=== PATIENT | male | born 1985 | race Caucasian/White ===

== ENCOUNTER → 2018-02-28 14:00 | Outpatient (CLI) | payer OTHER, MEDICARE, MEDICAID, SELFPAY | DX: Z23 Encounter for immunization (principal) | CPT/HCPCS: 90471; 90686 ==

== ENCOUNTER → 2019-02-15 07:08 | Outpatient (CLI) | payer OTHER, MEDICARE, MEDICAID, SELFPAY ==
[2019-02-15 08:55] LABS: Alanine Aminotransferase 31 IU/L (21-72); Albumin 4.4 g/dL (3.5-5.0); Albumin Globulin Ratio 1.5 (1.0-2.8); Alkaline Phosphatase 62 U/L (38-126); Aspartate Aminotransferase 27 IU/L (17-59); BUN Creatinine Ratio 21.4 (6-22); Bilirubin Total 0.8 mg/dL (0.2-1.3); Blood Urea Nitrogen 15 mg/dL (9-20); Calcium 9.3 mg/dL (8.4-10.2); Carbon Dioxide 29 mmol/L (22-32); Chloride 99 mmol/L (98-107); Cholesterol 260 mg/dL (140-199); Estimated Glomerular Filt Rate > 60.0 mL/min (>60); Glucose 93 mg/dL (70-100); HDL Cholesterol 46 mg/dL (40-60); HEMOLYSIS < 15 (0-50); Hemoglobin A1C% w Est Avg Glu 4.6 % (4.0-6.0); LDL Cholesterol Calculated 184 mg/dL (<100); Potassium 3.5 mmol/L (3.4-5.1); Sodium 140 mmol/L (137-145); Total Protein 7.4 g/dL (6.3-8.2); Triglycerides 151 mg/dL (35-150)
[2019-02-15 08:59] LABS: Add Manual Diff / Slide Review NO; Basophils Absolute Auto 100 /uL (0-100); Basophils Percent Auto 1.2 % (0-2); Eosinophils Absolute Auto 0 /uL (0-450); Eosinophils Percent Auto 0.8 % (2-4); Hematocrit 47.8 % (41-53); Hemoglobin 16.6 g/dL (13.5-17.5); Lymphocytes Absolute Auto 1700 /uL (1100-4500); Lymphocytes Percent Auto 34.9 % (25-40); Mean Corpuscular HGB Conc 34.6 % (30-36); Mean Corpuscular Hemoglobin 32.7 PG (26-34); Mean Corpuscular Volume 94.5 fL (80-100); Monocytes Absolute Auto 400 /uL (0-900); Monocytes Percent Auto 7.7 % (3-14); Neutrophils Absolute Auto 2700 /uL (1500-7000); Neutrophils Percent Auto 55.4 % (50-75); Platelet Count 252 X10^3/uL (150-400); Red Blood Cell Count 5.06 X10^6/uL (4.5-5.9); Red Cell Distribution Width 12.9 % (11.6-14.8); White Blood Cell Count 4.8 X10^3/uL (4.5-11.0)
[2019-02-15 09:37] LABS: Vitamin D 25 Hydroxy (D3) 29.6 ng/mL (30.0-100.0)
[2019-02-15 09:40] LABS: Vitamin B12 966 pg/mL (239-931)
[2019-02-15 09:51] LABS: Thyroid Stimulating Hormone 6.02 uIU/mL (0.47-4.68)
== END ==
PROVIDERS: PCP Family Medicine; Visit Provider Family Medicine
DX: Q90.9 Down syndrome, unspecified (principal); I83.90 Asymptomatic varicose veins of unspecified lower extremity; H66.91 Otitis media, unspecified, right ear; L70.0 Acne vulgaris
CPT/HCPCS: 36415; 80053; 80061; 82306; 82607; 83036; 84443; 85025

== ENCOUNTER → 2019-03-13 14:55 | Outpatient (CLI) | payer OTHER, MEDICARE, MEDICAID, SELFPAY | PROVIDERS: PCP Family Medicine | DX: Z23 Encounter for immunization (principal) | CPT/HCPCS: 90471; 90686 ==

== ENCOUNTER 2019-04-03 08:59 | Day surgery (SDC) | payer OTHER, MEDICARE, MEDICAID, SELFPAY ==
[2019-04-02 08:12] VITALS: BMI 31.1
[2019-04-03] VITALS (10 sets, daily range): BP systolic 86–109; BP diastolic 51–74; PULSE 71–86; RESP 8–14; TEMP 36.3–36.6; O2SAT 91–100; BMI 31.1
[2019-04-03] MEDS: LACTATED RINGERS 1,000 ML 42 ML IV ×2 (10:00→12:01)
--- NOTE | 2019-04-03 10:17 | PM.PREOP ---
Pre-operative Note Interval Note History & Physical reviewed/Exam performed by Physician: Yes Changes to H&P: No
[2019-04-03] MEDS: CEFAZOLIN 2 GM/100 ML FROZ.PIGGY IV (10:34)
--- NOTE | 2019-04-03 11:11 | SUR.OPER ---
Supine on pink pad on OR bed, head on pillow, bilateral arms padded and tucked at side, legs uncrossed, safety belt at thigh, tape over blanket over lower legs .
[2019-04-03] MEDS: BUPIVACAINE 0.25% (PF) VIAL 30 ML INJ (11:19)
--- NOTE | 2019-04-03 12:38 | PM.OP.1 ---
Operative Date/Time/Diagnoses Date of procedure: 04/03/19 Time of procedure: 12:38 Pre-op diagnosis: Left inguinal hernia Post-op diagnosis: same Procedure & Clinicians Procedure: Laparoscopic left inguinal hernia repair with mesh (ALEXA) Same procedure as scheduled: Yes Indications: 33-year-old male with a symptomatic left inguinal hernia presents for elective laparoscopic repair Surgeon: Garfield Avina Anesthesia Type: General Operative Notes Findings: Direct and indirect left inguinal hernia. No significant right inguinal hernia Prosthetic devices, grafts, tissues, transplants, or devices: Bard 3D Max Estimated Blood Loss (mL): 30 Procedure in detail: The patient was brought to the operating room and placed supine on the table. Bilateral sequential compression devices were applied. General anesthesia was induced and they were intubated with an endotracheal tube. A stanton cath was placed in sterile fashion. They received 2 g ancef prior to skin incision. They were prepped and draped in sterile fashion. A time out was performed to ensure the correct patient, procedure and necessary equipment within the operating room. The skin was infiltrated with 0.25% bupivicaine. A 1 cm supra umbilical midline incision was made. The umbilical stalk was elevated the fascia sharply incised and the abdomen entered traumatically. A 10mm balloon port was placed and pneumoperitoneum was established at 15mm Hg. Insepction of the abdomen demonstrated no evidence of injury upon entry. Two 5 mm ports were then placed under direct visualization in the right and left lower quadrant lateral to the rectus muscle. A left direct and indirect hernia was observed. There was no major right inguinal hernia. The left vas deferns the spermatic vessels were identified and protected. The peritoneum 4 cm superior to the deep inguinal ring between the medial umbilical ligament and the anterior superior iliac spine was incised. The peritoneal flap was retracted and the preperitoneal tissue was dissected off the flap beginning lateral to the inferior epigastric artery and towards the ASIS and to posterior limit of the psoas muscle to develop the lateral aspect of the pocket. Next the peritoneum medial to the inferior epigastric was mobilized towards the median umbilical ligament to develop the medial aspect of the pocket and the direct defect was reduced. The space of Retzius was fully dissected such that the Irvin's ligmament and the pubic symphysis were visible. Next, the peritoneum was mobilized off the the spermatic vessels and vas deferns and fully exposed to the point where the vas deferens intersects with the medial umbilical ligament and the indirect hernia was reduced. A medium Bard 3D Max mesh was then placed into the abdomen and positioned such that the myopectineal orifice was completely covered with good overlap on all sides. The mesh was anchored to the pubic tubercle and to Irvin?s ligament. The peritoneal flap was then repositioned back to its original position and tacks were used to anchor it in position such that no bowel could herniate into the preperitoneal space. The area was examined for hemostasis. The 5mm trocars were removed under direct visualization and pneumoperitoneum was deflated through the umbilical trocar, The fascia at the umbilicus was closed with 0-Vicryl in figure of 8 fashion, skin closed with 4-0 Monocyl followed by Dermabond. The sponge and instrument count at the end of the case was correct. Both testicles were entirely within the scrotum at the end of the case. The patient emerged from anesthsia was extubated and transferred to recovery in stable condition. Complications: none Post-operative Condition: stable Disposition: same day surgery
--- NOTE | 2019-04-03 12:45 | PM.HP.1 ---
History of Present Illness History of Present Illness Date Patient Seen: 04/03/19 Time Patient Seen: 12:46 Chief complaint: [id number] Narrative: 33-year-old male with Down syndrome and reducible left inguinal hernia presents for elective repair. Please refer to the H& P dated 02/28/2019 for further detail. There been no interval changes in his health status. Patient History Medical History Down syndrome (Inactive) Down syndrome (Acute) History of high cholesterol (Acute) Rheumatic fever (Acute) Subacute thyroiditis (Acute ~2004) Sydenham chorea (Acute) Surgical History History of placement of ear tubes (Acute) History of strabismus surgery (Acute ~2003) History of tonsillectomy (Acute) Hx of cystoscopy (Acute ~2005) Social History household members: family Smoking Status: Never smoker alcohol intake: current Family & Social History Social History: household members family Tobacco & Substance use: Smoking Status Never smoker alcohol intake current Substance Use Type does not use Meds Home Medications and Allergies Home Medications Medication Instructions Recorded Confirmed Type atorvastatin 20 mg tablet 20 mg PO DAILY 02/28/19 04/03/19 History ketoconazole 1 applic TOPICAL DIRECTED PRN 04/02/19 04/02/19 History multivitamin 1 cap PO DAILY 04/02/19 04/03/19 History Citrucel 1,000 mg PO QPM 04/03/19 04/03/19 History acetaminophen [Tylenol] 650 mg PO QID PRN #60 cap 04/03/19 Rx docusate sodium [Colace] 100 mg PO BID #30 cap 04/03/19 Rx ibuprofen 800 mg PO Q6H PRN #60 tab 04/03/19 Rx oxycodone 5 mg PO Q6H PRN #20 tab 04/03/19 Rx Allergies Allergy/AdvReac Type Severity Reaction Status Date / Time latex [LATEX] Allergy Mild Skin Unverified 04/03/19 09:16 irritation INGREDIENT: NKA - NO KNOWN Allergy Unknown Uncoded 02/28/19 15:03 ALLERGIES Exam Vital Signs (past 8 hours): - 04/03/19 09:36 04/03/19 12:22 04/03/19 12:27 Temperature 97.4 F L 97.3 F L Pulse Rate 75 80 86 Respiratory Rate 14 11 L 12 Blood Pressure 109/74 88/51 L 94/54 L Pulse Oximetry 98 91 96 04/03/19 12:32 04/03/19 12:37 Temperature Pulse Rate 80 81 Respiratory Rate 12 14 Blood Pressure 97/57 L 94/54 L Pulse Oximetry 97 97 Oxygen Delivery Method Room Air Narrative Exam Narrative: General-no acute distress, well nourished HEENT-moist mucous membranes, no scleral icterus Neck-supple, no lymphadenopathy Chest- non labored respirations, clear to auscultation bilaterally Cardiac-regular rate no peripheral edema Abdomen-soft,reducible left inguinal hernia Extremities-warm, well perfused Neurological-alert and oriented, no focal deficits Assessment & Plan Assessment and plan (1) Left inguinal hernia: Current visit: No Status: Acute Assessment & Plan narrative: 33-year-old male with a symptomatic reducible left inguinal hernia presents for elective laparoscopic repair. Please refer to the H&P from for further detail.
== END 2019-04-03 13:50 | disposition home or self-care (01) ==
PROVIDERS: PCP Family Medicine; Visit Provider Surgery
PROC: 0YQ64ZZ Repair Left Inguinal Region, Percutaneous Endoscopic Approach (ICD-10-PCS; CPT 49650; principal; 2019-04-03 10:15)
DX: K40.90 Unilateral inguinal hernia, without obstruction or gangrene, not specified as recurrent (principal); Q90.9 Down syndrome, unspecified
CPT/HCPCS: 49650; C1781; J0690; J1100; J1885; J2250; J2405; J2704; J3010

== ENCOUNTER → 2019-04-27 07:05 | Outpatient (CLI) | payer OTHER, MEDICARE, MEDICAID, SELFPAY ==
[2019-04-27 08:30] LABS: Alanine Aminotransferase 54 IU/L (<50); Albumin 4.3 g/dL (3.5-5.0); Albumin Globulin Ratio 1.7 (1.0-2.8); Alkaline Phosphatase 57 U/L (38-126); Aspartate Aminotransferase 35 IU/L (17-59); BUN Creatinine Ratio 21.4 (6-22); Bilirubin Total 0.6 mg/dL (0.2-1.3); Blood Urea Nitrogen 15 mg/dL (9-20); Calcium 9.3 mg/dL (8.4-10.2); Carbon Dioxide 32 mmol/L (22-32); Chloride 97 mmol/L (98-107); Cholesterol 176 mg/dL (140-199); Estimated Glomerular Filt Rate > 60.0 mL/min (>60); Globulin 2.6 g/dL (1.7-4.1); Glucose 87 mg/dL (70-100); HDL Cholesterol 44 mg/dL (40-60); HEMOLYSIS < 15 (0-50); LDL Cholesterol Calculated 106 mg/dL (<100); Potassium 4.2 mmol/L (3.4-5.1); Sodium 136 mmol/L (137-145); Total Protein 6.9 g/dL (6.3-8.2); Triglycerides 129 mg/dL (35-150)
== END ==
PROVIDERS: PCP Family Medicine; Visit Provider Family Medicine
DX: E78.5 Hyperlipidemia, unspecified (principal)
CPT/HCPCS: 36415; 80053; 80061

== ENCOUNTER → 2020-01-05 10:57 | Outpatient (CLI) | payer OTHER, MEDICARE, MEDICAID, SELFPAY ==
[2020-01-06 23:13] LABS: COVID19 Sendout Not Detected (Not Detect)
== END ==
PROVIDERS: PCP Family Medicine; Visit Provider Physician Assistant
DX: Z01.812 Encounter for preprocedural laboratory examination (principal)
CPT/HCPCS: 87635

== ENCOUNTER 2020-01-08 06:29 | Day surgery (SDC) | payer OTHER, MEDICARE, MEDICAID, SELFPAY ==
[2020-01-01 08:28] VITALS: BMI 26.2
[2020-01-08] VITALS (11 sets, daily range): BP systolic 88–122; BP diastolic 54–83; PULSE 73–88; RESP 10–20; TEMP 36.3–37.1; O2SAT 95–100; BMI 25.7
--- NOTE | 2020-01-08 07:17 | PM.PREOP ---
Pre-operative Note COVID-19 COVID-19 status: Negative Interval Note History & Physical reviewed/Exam performed by Physician: Yes Changes to H&P: No
[2020-01-08] MEDS: LACTATED RINGERS 1,000 ML 100 ML IV (07:45)
[2020-01-08] MEDS: CEFAZOLIN 2 GM/100 ML FROZ.PIGGY IV (08:14)
--- NOTE | 2020-01-08 08:40 | SUR.OPER ---
Supine on padded OR bed, head on pillow, arms secured on padded arm boards at <90 degrees abduction, legs uncrossed, safety belt at thigh, tape over blanket over lower legs.
[2020-01-08] MEDS: BUPIVACAINE 0.25% (PF) VIAL 30 ML INJ (08:46)
--- NOTE | 2020-01-08 10:11 | PM.OP.1 ---
Operative Date/Time/Diagnoses Date of procedure: 01/08/20 Time of procedure: 10:11 Pre-op diagnosis: Recurrent left inguinal hernia Post-op diagnosis: same Procedure & Clinicians Procedure: Open left inguinal hernia repair Same procedure as scheduled: Yes Indications: 34-year-old male history of a left laparoscopic inguinal hernia repair presents with a recurrence and is here for elective open inguinal hernia repair Surgeon: Garfield Avina Click Yes if Unassisted: Yes Anesthesia Type: General Operative Notes Findings: Direct left inguinal hernia defect Specimen(s): none sent Estimated Blood Loss (mL): 10 Procedure in detail: The patient was placed supine on the table and bilateral lower extremity compression devices were applied. Anesthesia was induced they were intubated with an LMA and received 2g of Ancef. A time-out was performed. They were prepped and draped in sterile fashion. The left external inguinal ring and the anterior superior iliac crest were identified and marked. 1 finger breath above the right inguinal ligament the skin was infiltrated with 0.25% bupivacaine. The skin incision was made here and the subcutaneous tissues were divided with electrocautery exposing the external oblique aponeurosis which was then opened along the direction of its fibers. The ilioinguinal nerve was identified on the anterior aspect of the cord and protected. Using a kittner cord was carefully dissected away from the inguinal canal adjacent to the pubic tubercle. The cord was freed and encircled with a Carlitos drain. A large direct floor defect was identified. The cremasteric fibers surrounding the cord were divided using electrocautery. The vas deferens and the testicular vessels were preserved and protected. There was no evidence of a indirect hernia defect. A plug of Prolene mesh was placed into the floor defect and secured with Prolene suture. I selected a 7x 15 cm lightweight Pro Loop hernia mesh. The inferior medial aspect of the mesh was anchored to the periosteum of the pubic tubercle such that there was approximately 2 cm of tubercle overlap with 0 Prolene and then was run continuously along the inferior edge of the mesh to the shelving edge of the inguinal ligament. Interrupted 3 0 Vicryl suture was used to anchor the superior aspect of the mesh to the conjoined tendon in several places. The tails were then reapproximated around the spermatic cord loosely. The tails of the mesh were then tucked under the external oblique aponeurosis. The repair was checked for hemostasis. The wound was irrigated with sterile saline. The external oblique aponeurosis was reapproximated in a running fashion using 3 0 Vicryl. The subcutaneous tissues were reapproximated with 3 0 Vicryl skin closed with 4 0 Monocryl followed by the application of Dermabond. At the end of the operation ensure that both testicles were within the scrotum. The sponge instrument count at the end operation was correct. The patient emerged from anesthesia was extubated and transferred to the postoperative care unit in stable condition. A total of 30 ml of of 0.25% bupivicaine was used to infiltrate the skin. Complications: none Post-operative Condition: stable Disposition: same day surgery
--- NOTE | 2020-01-08 10:14 | SUR.PHASEI ---
pt's mom at bedside. pt arousing at present.
[2020-01-08] MEDS: fentaNYL 100 MCG/2 ML INJ IV (10:21)
[2020-01-08] MEDS: OXYCODONE/ACETAMINOPHEN 5/325 TABLET 1 TAB PO (10:40)
--- NOTE | 2020-01-08 16:27 | SUR.PHASEII ---
Late entry: Assumed care from Caren, Mom with pt, then dad brought in. Site c/d/i. pt ready to go, assisted to dress by mom, pt left in stable condition.
== END 2020-01-08 11:30 | disposition home or self-care (01) ==
PROVIDERS: PCP Family Medicine; Referring Provider Surgery; Visit Provider Surgery
PROC: (CPT 49520; principal; 2020-01-08 07:45)
DX: K40.91 Unilateral inguinal hernia, without obstruction or gangrene, recurrent (principal); Q90.9 Down syndrome, unspecified
CPT/HCPCS: 49520; C1781; J0690; J1100; J2250; J2405; J2704; J3010

== ENCOUNTER → 2020-03-25 19:49 | Outpatient (CLI) | payer OTHER, MEDICARE, MEDICAID, SELFPAY | PROVIDERS: PCP Family Medicine; Referring Provider Internal Medicine; Visit Provider Internal Medicine | DX: Z23 Encounter for immunization (principal) | CPT/HCPCS: 90471; 90686 ==

== ENCOUNTER 2020-06-27 14:39 | Emergency (ER) | payer MEDICARE, MEDICAID, SELFPAY ==
[2020-06-27 14:50] VITALS: BP 112/70; PULSE 74; RESP 16; O2SAT 94
--- NOTE | 2020-06-27 16:17 | ED.ALLEREA ---
HPI - Allergic Reaction General Chief complaint: Allergic Reaction Stated complaint: Reaction to covid shot Time Seen by Provider: 06/27/20 14:54 Source: family Mode of arrival: Wheelchair Limitations: no limitations History of Present Illness HPI narrative: 34-year-old gentleman with Down syndrome, hypertension, hyperlipidemia presents after his 1st COVID injection this afternoon. The injection itself went well approximately 10 minutes later he was slightly pale, mildly lightheaded and felt a bit nauseated. Was brought to the emergency room for further evaluation Related Data Home Medications Medication Instructions Recorded Confirmed atorvastatin 20 mg tablet 20 mg PO DAILY 02/28/19 02/06/20 ketoconazole 1 applic TOPICAL DIRECTED PRN 04/02/19 02/06/20 Citrucel 1,000 mg PO QPM 04/03/19 02/06/20 multivitamin 1 tab PO DAILY 01/01/20 02/06/20 olanzapine 5 mg PO BID 01/01/20 02/06/20 esomeprazole magnesium [Nexium] 20 mg PO DAILY 01/08/20 02/06/20 Previous Rx's Medication Instructions Recorded acetaminophen [Tylenol] 650 mg PO QID PRN #60 cap 01/08/20 ibuprofen 800 mg PO Q6H PRN #60 tab 01/08/20 oxycodone 5 mg PO Q6H PRN #20 tab 01/08/20 levofloxacin 750 mg tablet 750 mg PO DAILY #7 tab 01/31/20 Allergies Allergy/AdvReac Type Severity Reaction Status Date / Time latex [LATEX] Allergy Mild Skin Unverified 02/06/20 09:21 irritation adhesive tape Allergy Skin Verified 02/06/20 09:21 irritation Review of Systems Review of Systems Narrative: No recent fevers, cough, chills, chest pain, dyspnea, abdominal pain, dysuria. Remainder of review of systems is otherwise unremarkable Patient History Medical History Anxiety Down syndrome Down syndrome Eczema GERD (gastroesophageal reflux disease) History of high cholesterol Hypothyroid Rheumatic fever (2002) Subacute thyroiditis (~2004) Sydenham chorea (2002) Surgical History History of placement of ear tubes History of strabismus surgery (~2003) History of tonsillectomy Hx of cystoscopy (~2005) Hx of left inguinal hernia repair (03/2019) Hx of oral surgery (2001) Hx of oral surgery (~2003) Social History household members: family Smoking Status: Never smoker alcohol intake: current Smoking Status: Never smoker alcohol intake frequency: a few times a month Substance Use Type: does not use Exam Narrative Exam Narrative: General: no acute distress. Able to speak in full sentences. Slightly pale, Well-nourished well-developed HEENT: Moist mucous membranes, normal sclera with reactive pupils, Respiratory: Lungs are clear to auscultation, no wheezing no rales no rhonchi. Full and symmetrical air movement Cardiac: Regular rate and rhythm no murmurs no bruits Abdomen: Soft nontender good bowel tones, no flank pain Skin: Warm and dry, no rashes Neurologic: Grossly neurologically intact with no obvious asymmetries or abnormalities Extremity: No abnormalities around the right deltoid injection site Initial Vital Signs Initial Vital Signs: Vital Signs Pulse Rate 74 06/27/20 14:50 Respiratory Rate 16 06/27/20 14:50 Blood Pressure 112/70 06/27/20 14:50 Pulse Oximetry 94 06/27/20 14:50 Course Vital Signs Vital signs: Vital Signs - 8 hr 06/27/20 14:50 06/27/20 16:33 Pulse Rate 74 73 Respiratory Rate 16 16 Blood Pressure 112/70 113/59 L Pulse Oximetry 94 97 MDM - Allergic Reaction MDM Narrative Medical decision making narrative: 34-year-old with of vasovagal reaction shortly after his Moderna COVID vaccine today. There was no suggestion of allergic reaction. He has responded nicely to time, juice and Musa crackers. Have recommended that he have a full meal about an hour before his 2nd COVID vaccination in 28 days. Strongly recommend that he still have his 2nd vaccination. He is safe for home discharge Discharge Plan Departure Patient Disposition: Home Clinical Impression: Vaso-vagal reaction Instructions: DI for Syncope in Adults (Fainting) Prescriptions: No Action levofloxacin 750 mg tablet 750 mg PO DAILY Qty: 7 RF: 0 atorvastatin 20 mg tablet 20 mg PO DAILY RF: 0 ketoconazole 2 % Cream 1 applic TOPICAL DIRECTED PRN (Reason: Folliculitis) RF: 0 Citrucel 500 mg Tablet 1,000 mg PO QPM RF: 0 olanzapine 5 mg Tablet 5 mg PO BID RF: 0 multivitamin Tablet,Chewable 1 tab PO DAILY RF: 0 esomeprazole magnesium [Nexium] 20 mg Capsule,Delayed Release(Dr/Ec) 20 mg PO DAILY RF: 0 ibuprofen 200 mg tablet 800 mg PO Q6H PRN (Reason: pain) Qty: 60 RF: 0 oxycodone 5 mg tablet 5 mg PO Q6H PRN (Reason: pain) Qty: 20 RF: 0 acetaminophen [Tylenol] 325 mg capsule 650 mg PO QID PRN (Reason: pain) Qty: 60 RF: 0
[2020-06-27 16:33] VITALS: BP 113/59; PULSE 73; RESP 16; O2SAT 97
== END 2020-06-27 16:34 | disposition home or self-care (01) ==
PROVIDERS: Emergency Provider Emergency Medicine
DX: R55 Syncope and collapse (principal); R42 Dizziness and giddiness; R11.0 Nausea; T50.Z95A Adverse effect of other vaccines and biological substances, initial encounter; Q90.9 Down syndrome, unspecified; I10 Essential (primary) hypertension; E78.5 Hyperlipidemia, unspecified; Z23 Encounter for immunization
CPT/HCPCS: 0011A; 91301; 99281

== ENCOUNTER → 2020-07-24 14:29 | Outpatient (CLI) | payer MEDICARE, MEDICAID, SELFPAY ==
[2020-07-24] MEDS: COVID-19 VACC #2, MRNA(MOD) 100 MCG/0.5 ML VIAL IM (14:36)
== END ==
PROVIDERS: Visit Provider Internal Medicine
DX: Z23 Encounter for immunization (principal)
CPT/HCPCS: 0012A; 91301

== ENCOUNTER → 2022-12-02 12:00 | Outpatient (CLI) | payer MEDICARE, MEDICAID, SELFPAY ==
--- NOTE | 2022-12-02 | DI.US.S_ITS ---
PROCEDURE: US SCROTUM INDICATIONS: MASS IN TESTICLE TECHNIQUE: Real-time scanning was performed of the scrotum and testicles, with image documentation. Color and pulse Doppler interrogation was performed of both testicles. COMPARISON: None. FINDINGS: Right: Testicle is normal in size at 3.5 x 1.9 x 2.3 cm, and homogenous in echotexture. Epididymis is normal in overall size and morphology. Large hydrocele versus spermatocele is seen within right scrotum compressing right testes with low level internal echoes measures up to 9.5 x 6.8 x 4.6 cm in size. No varicoceles. Overlying scrotal skin is normal in thickness. Left: Testicle is normal in size at 5.3 x 1.5 x 1.3 cm, and homogeneous in echotexture. Epididymis is normal in overall size and morphology. Large hydrocele versus spermatocele is seen in left testes with internal low level echoes and measures 9.5 x 7 x 4.9 cm in size. There is mass effect on the adjacent left testes. No varicoceles. Overlying scrotal skin is normal in thickness. Doppler: Color and pulse Doppler demonstrate normal and symmetric arterial flow in both testicles. IMPRESSION: 1. Suggestion of large bilateral hydrocele versus spermatoceles in bilateral scrotum causing mass effect on bilateral testes. 2. No discrete testicular mass. No evidence of testicular torsion. Dictated by: El Arnold M.D. on 12/02/2022 at 13:34 Approved by: El Arnold M.D. on 12/02/2022 at 13:36
== END ==
PROVIDERS: PCP Family Medicine; Referring Provider Family Medicine; Visit Provider Family Medicine
DX: N50.89 Other specified disorders of the male genital organs (principal)
CPT/HCPCS: 76870; 93975

== ENCOUNTER 2023-01-11 06:45 | Day surgery (SDC) | payer MEDICARE, MEDICAID, SELFPAY ==
[2023-01-11] VITALS (7 sets, daily range): BP systolic 103–112; BP diastolic 63–72; PULSE 77–88; RESP 11–18; TEMP 36.1–36.7; O2SAT 95–100; BMI 25.0
--- NOTE | 2023-01-11 | PATH_ITS ---
[facility] Accession Number: [id number] No. of containers..01 Tissue . 01 Material submitted: . body - LEFT HYDROCELE SAC . 01 Diagnosis: Left Hydrocele, Excision: Mesothelial-lined fibrovascular tissue with chronic inflammation, consistent with hydrocele sac. Negative for neoplasia. MRV 01/18/2023 1918 Local . 01 Electronically signed: . Rosa Levi MD, Pathologist NPI- [id number] . 01 Gross description: . Received in formalin, labeled with the patient's name and left hydrocele sac, is a 5.0 x 4.0 x 2.1 cm aggregate of white-pink, fibromembranous tissue with minimal adherent fat. Director Of Pediatric Rehabilitation sections are submitted in cassettes A1-A2. ([id number]) /[facility] 01/15/2023 1529 Local . 01 Pathologist provided ICD-10: N43.3 . 01 CPT . 306863 Specimen Comment: A courtesy copy of this report has been sent to [phone] Performed at: 01 [facility] [address] [place] [address], [place], [place] [id number] MD Morgan Steward MD Phone: [phone]
[2023-01-11] MEDS: LACTATED RINGERS 1,000 ML 21 ML IV (07:38)
--- NOTE | 2023-01-11 07:38 | PM.PREOP ---
Pre-operative Note COVID-19 COVID-19 status: Not tested Criteria for continued procedure: Non-surgical alternatives not available or appropriate per current SOC Interval Note History & Physical reviewed/Exam performed by Physician: Yes Changes to H&P: No
[2023-01-11] MEDS: CEFAZOLIN 2 GM/100 ML PREMIX 100 ML IV (07:51)
--- NOTE | 2023-01-11 08:07 | SUR.OPER ---
Supine on padded OR bed, head on pillow, arms secured on padded arm boards at <90 degrees abduction, legs uncrossed, safety belt at abdomen tape over blanket over lower legs.
[2023-01-11] MEDS: BUPIVACAINE 0.25% (PF) VIAL 30 ML INJ (08:10)
[2023-01-11] MEDS: BACITRACIN 28 GM OINT 1 APPLIC TOP (08:11)
--- NOTE | 2023-01-11 08:51 | P.OP_ITS ---
Procedure & Clinicians Procedure: Left hydrocele ectomy Same procedure as scheduled: Yes Indications: This very pleasant 37-year-old male presented with complaint of left hemiscrotal enlargement. Which was uncomfortable and enlarging. Ultrasound revealed this to be consistent with left hydrocele they presents this time for left hydrocelectomy. Surgeon: Ahmet Mcfarland Click Yes if Unassisted: Yes Anesthesia Type: General Operative Notes Findings: Findings consistent with left hydrocele clear yellow fluid is noted testes epididymis is noted to be normal. Cord structures are normal no other abnormality was noted save a small skin tag which was left in place. No worrisome or adverse findings noted. Closure Type: primary Specimen(s): other (Left hydrocele sac) Estimated Blood Loss (mL): 0 Blood products transfused: none Procedure in detail: Procedure in detail: After informed consent was obtained, the patient was identified and brought to the operating room where he was placed in his supine position on the operative table. Once on the table anesthesia was induced and maintained. Ensuring an adequate level of anesthesia the patient was shaved, prepped, draped, prepared forward left hemiscrotal surgery. After prepping, draping, ensuring an adequate level of anesthesia and time-out a transverse incision was made in left hemiscrotum and the Section taken down to the layers of the dartos. The testes and hydrocele was then delivered. The hydrocele sac was entered anteriorly the fluid was evacuated with suction and the incision in the tunica vaginalis was extended vertically. The tunica vaginalis and sac was then excised with electrocautery. The edges of the sac that remained were then run with a 2-0 chromic. Points of bleeding were controlled with the electrocautery. Cord block was performed with Vargas% Marcaine and the testis returned to the scrotum. The hose was then reopened with a running 2-0 Vicryl skin edges with interrupted vertical mattress of 2-0 chromic the incision was then infiltrated with 0.25% plain Marcaine. Bacitracin Telfa fluffs and scrotal support were applied the patient was awakened to be transferred to the post anesthesia care unit for recovery. There were no complications the patient is to follow up in my office in approximately 10-14 days. Complications: none Post-operative Condition: stable Disposition: PACU Plan for aftercare: Discharge to home follow-up my office in 10-14 days.
[2023-01-11] MEDS: OXYCODONE/ACETAMINOPHEN 5/325 TABLET 1 TAB PO (09:12)
--- NOTE | 2023-01-11 10:25 | SUR.PHASEII ---
Went over discharge instructions with mother. Mother states she understands discharge instructions. Pt very cooperative. Pt is plesant and is cooperative.
== END 2023-01-11 10:04 | disposition home or self-care (01) ==
PROVIDERS: PCP Family Medicine; Referring Provider Urology; Visit Provider Urology
PROC: (CPT 55040; principal; 2023-01-11 07:45)
DX: N43.3 Hydrocele, unspecified (principal); Q90.9 Down syndrome, unspecified
CPT/HCPCS: 55040; J0690; J1100; J2405; J2704; J3010

== ENCOUNTER → 2023-04-08 15:19 | Outpatient (CLI) | payer MEDICARE, MEDICAID, SELFPAY | PROVIDERS: PCP Family Medicine; Referring Provider Family Medicine; Visit Provider Family Medicine | DX: Z23 Encounter for immunization (principal) | CPT/HCPCS: 90471; 90686 ==

== ENCOUNTER → 2024-03-30 20:45 | Outpatient (CLI) | payer MEDICARE, MEDICAID, SELFPAY | PROVIDERS: PCP Family Medicine; Referring Provider Internal Medicine; Visit Provider Internal Medicine | DX: Z23 Encounter for immunization (principal) | CPT/HCPCS: 90471; 90656 ==